=== PATIENT | male | born 1965 | race Caucasian/White ===

== ENCOUNTER 2022-03-16 11:03 | Emergency (ER) | payer OTHER, BC ==
[2022-03-16 11:20] VITALS: BP 151/88; PULSE 101
[2022-03-16] MEDS ORDERED: Lidocaine 1% with EPINEPHrine 1:100,000 20 ML MDV INJECT ONE (11:20)
[2022-03-16] MEDS ORDERED: Lidocaine 2% with EPINEPHrine 1:200,000 20 ML SDV INJECT ONE (11:24)
[2022-03-16] MEDS ORDERED: Bacitracin Oint 1 GM U/D Packet TOP ONE (11:43)
== END 2022-03-16 12:07 | disposition home or self-care (01) ==
LOC: DL.ED 11:03
DX: S61.411A Laceration without foreign body of right hand, initial encounter (principal); E11.9 Type 2 diabetes mellitus without complications; W26.8XXA Contact with other sharp object(s), not elsewhere classified, initial encounter
CPT/HCPCS: 12001; 99282-25

== ENCOUNTER 2023-08-01 20:48 | Emergency (ER) | payer BC, OTHER ==
[2023-08-01 20:57] VITALS: PULSE 98
[2023-08-01] MEDS: Fluorescein 1 MG Ophth Strip EYERT ONE (21:02)
[2023-08-01] MEDS: Tetracaine HCl/PF 0.5% 4 ML Bottle EYERT ONE (21:08)
[2023-08-01] MEDS: Gentamicin 0.3% Ophth Soln 5 ML Bottle EYERT ONE (21:21)
[2023-08-01 22:13] VITALS: BP 132/79
== END 2023-08-01 21:24 | disposition home or self-care (01) ==
LOC: DL.ED 20:48
DX: T15.01XA Foreign body in cornea, right eye, initial encounter (principal); E11.9 Type 2 diabetes mellitus without complications
CPT/HCPCS: 99283; A9270

== ENCOUNTER 2024-02-20 13:44 | Emergency (ER) | payer OTHER, BC ==
[2024-02-20 13:56] VITALS: BP 153/89; PULSE 103
[2024-02-20] MEDS: Lidocaine 1% 5 ML VIAL INJECT ONE (14:02)
[2024-02-20] MEDS: Bacitracin Oint 1 GM U/D Packet TOP ONE (14:34)
== END 2024-02-20 14:36 | disposition home or self-care (01) ==
LOC: DL.ED 13:44
DX: S61.215A Laceration without foreign body of left ring finger without damage to nail, initial encounter (principal); E11.9 Type 2 diabetes mellitus without complications; W26.8XXA Contact with other sharp object(s), not elsewhere classified, initial encounter; Y93.89 Activity, other specified; Y99.0 Civilian activity done for income or pay
CPT/HCPCS: 12002; 99282; A9270; J3490

== ENCOUNTER 2024-03-01 11:33 | Emergency (ER) | payer OTHER, BC | END 2024-03-01 12:04 | disposition home or self-care (01) | LOC: DL.ED 11:33 | DX: S61.215D Laceration without foreign body of left ring finger without damage to nail, subsequent encounter (principal); X58.XXXD Exposure to other specified factors, subsequent encounter | CPT/HCPCS: 99281; 99283 ==